=== PATIENT | male | born 1990 | race Two or more races ===

== ENCOUNTER 2020-01-30 13:22 | Emergency (ER) | payer OTHER ==
[2020-01-30] MEDS ORDERED: Lidocaine 1% 10 ML MDV INJECT ONE (13:46)
[2020-01-30] MEDS ORDERED: Diphtheria,Pertussis(Acell),Tetanus Vaccine 0.5 ML Syringe IM ONE (13:46)
--- NOTE | 2020-01-30 13:53 | EDM.PDOC ---
ED HPI GENERAL MEDICAL PROBLEM - General Chief Complaint: Laceration Stated Complaint: LEFT POINTER FINGER LACERATION Time Seen by Provider: 01/30/20 13:36 Source of Information: Reports: Patient, RN Notes Reviewed History Limitations: Reports: No Limitations - History of Present Illness INITIAL COMMENTS - FREE TEXT/NARRATIVE: Patient is a 29-year-old male who presents to the ED for the evaluation of a left index finger laceration. Patient was working at a local sports [employer] and [employer], and was cutting [employer], and ended up slipping and cutting his left index finger. This is on the lateral aspect (radial) of the left index finger, also on the posterior portion extending to the anterior portion. This is not over the DIP joint. He is still able to move his finger in all range of motion comities not have any numbness or tingling distal to the injury. This does not involve the nail. This is a 1.5 cm linear laceration. Laceration happened at around 1300 hrs. Patient is not up-to-date on his tetanus vaccination. Left Finger-Index Pain Score (Numeric/FACES): 6 - Related Data Allergies Allergy/AdvReac Type Severity Reaction Status Date / Time No Known Allergies Allergy Verified 01/30/20 13:38 Home Meds: Home Meds . [No Known Home Meds] 01/30/20 [History] Past Medical History - Past Health History Medical/Surgical History: Denies Medical/Surgical History - Infectious Disease History Infectious Disease History: Reports: Chicken Pox Social & Family History - Tobacco Use Smoking Status *Q: Never Smoker Second Hand Smoke Exposure: No - Caffeine Use Caffeine Use: Reports: Coffee, Soda - Recreational Drug Use Recreational Drug Use: No ED ROS GENERAL - Review of Systems Review Of Systems: Comprehensive ROS is negative, except as noted in HPI. Skin: Reports: Wound (1.5cm linear laceration to L index finger; see HPI) Neurological: Denies: Numbness, Tingling ED EXAM, SKIN/RASH Exam: See Below Exam Limited By: No Limitations General Appearance: Alert, WD/WN, No Apparent Distress Respiratory/Chest: No Respiratory Distress, Lungs Clear, Normal Breath Sounds, No Accessory Muscle Use, Chest Non-Tender Cardiovascular: Normal Peripheral Pulses, Regular Rate, Rhythm, No Murmur Peripheral Pulses: 3+: Radial (L), Radial (R) Extremities: Normal Range of Motion, Normal Capillary Refill Neurological: Alert, Oriented, Normal Cognition, No Motor/Sensory Deficits Psychiatric: Normal Affect, Normal Mood Skin: Warm, Dry, Normal Color, No Rash, Wound/Incision (1.5 cm linear laceration to the distal aspect of the left index finger, this extends diagonally, from the anterior to posterior aspect, this does not involve the nail. This is distal to the DIP joint) ED SKIN PROCEDURES - Laceration/Wound Repair Left Lateral Distal Digit - 2nd (Index) Appearance: Superficial, Linear, Clean Distal NVT: Neuro & Vascular Intact, No Tendon Injury Anesthetic Type: Local Local Anesthesia - Lidocaine (Xylocaine): 1% Plain Local Anesthetic Volume: 2cc Skin Prep: Chlorhexidine (Hibiciens), Saline Exploration/Debridement/Repair: Wound Explored, In a Bloodless Field, Explored to Base, No Foreign Material Found Closed with: Sutures Lac/Wound length In cm: 1.5 Suture Size: 4-0 # of Sutures: 5 Suture Type: Prolene, Interrupted, Simple Sterile Dressing Applied: Nurse Tetanus Status Addressed: Yes (updated at today's visit) Complications: No Course - Vital Signs Last Recorded V/S: Last Vital Signs Temp 97.8 F 01/30/20 13:25 Pulse 98 01/30/20 13:25 Resp 18 01/30/20 13:25 BP 118/70 01/30/20 13:25 Pulse Ox 98 01/30/20 13:25 - Orders/Labs/Meds Orders: Active Orders 24 hr Category Date Time Status Vaccines to be Administered [RC] PER UNIT ROUTINE Care 01/30/20 13:46 Ordered Meds: Medications Discontinued Medications Generic Name Dose Route Start Last Admin Trade Name Jacob PRN Reason Stop Dose Admin Diphtheria/Tetanus/Acell Pertussis 0.5 ml 01/30/20 13:46 01/30/20 13:56 Adacel IM 01/30/20 13:47 0.5 ml .ONCE ONE Administration Lidocaine HCl 10 ml 01/30/20 13:46 01/30/20 13:56 Xylocaine 1% INJECT 01/30/20 13:47 10 ml ONETIME ONE Administration Departure - Departure Time of Disposition: 13:54 Disposition: Home, Self-Care 01 Condition: Fair Clinical Impression: Laceration of index finger of left hand without complication Qualifiers: Encounter type: initial encounter Qualified Code(s): S61.211A - Laceration without foreign body of left index finger without damage to nail, initial encounter - Discharge Information *PRESCRIPTION DRUG MONITORING PROGRAM REVIEWED*: No *COPY OF PRESCRIPTION DRUG MONITORING REPORT IN PATIENT LISY: No Instructions: Sutured Wound Care, [id number] Referrals: PCP,None [Primary Care Provider] - Forms: ED Department Discharge Additional Instructions: You have been evaluated in the ED for your laceration. Sutures will need to stay in for 10 -14 days (02/08-02/11) You may return to the ED or any clinic for removal. Please keep this area clean and dry, you may cleanse with regular soap and water. No vigorous scrubbing. Do not submerge this area in water for the next few days. Watch out for signs of infection like increased redness, swelling, pain at the laceration site, or if you should develop any fevers or chills. Please return to ED if your symptoms change or worsen. Sepsis Event Note - Evaluation Sepsis Screening Result: No Definite Risk - Focused Exam Vital Signs: Vital Signs Temp Pulse Resp BP Pulse Ox 01/30/20 13:25 97.8 F 98 18 118/70 98 Date Exam was Performed: 01/30/20 Time Exam was Performed: 14:44 - My Orders Last 24 Hours: My Active Orders 01/30/20 13:46 Vaccines to be Administered [RC] PER UNIT ROUTINE - Assessment/Plan Last 24 Hours: My Active Orders 01/30/20 13:46 Vaccines to be Administered [RC] PER UNIT ROUTINE
== END 2020-01-30 15:03 | disposition home or self-care (01) ==
LOC: JD.ED 13:22
DX: S61.211A Laceration without foreign body of left index finger without damage to nail, initial encounter (principal); W26.0XXA Contact with knife, initial encounter
CPT/HCPCS: 12001; 90471; 90715; 99282; J2001